=== PATIENT | female | born 1965 | race Caucasian/White ===

== ENCOUNTER → 2024-04-08 08:23 | Outpatient (REF) | payer BC, SELFPAY | LOC: HWWDC 08:23 | PROVIDERS: ATTENDING PHYSICIAN Family Medicine | DX: Z12.31 Encounter for screening mammogram for malignant neoplasm of breast (principal) | CPT/HCPCS: 77063; 77067 ==

== ENCOUNTER 2024-05-06 18:46 | Emergency (ER) | payer BC, SELFPAY ==
[2024-05-06 18:48] VITALS: BP 135/89
[2024-05-06 19:19] VITALS: BMI 26.2
--- NOTE | 2024-05-06 19:22 | ED.GENMED ---
History of Present Illness
General
Chief Complaint: Abdominal Symptoms
Source: patient
Exam Limitations: none
Time Seen by Provider: 05/06/24 19:08
Nursing documentation reviewed up to this point in time: agreed with
History of Present Illness
History of Present Illness:
Patient to ED with complaint of n/v/d since Saturday. States she was visiting family in [place] when she started to feel sick. No other family members with symptoms. Brought self to ED for eval.
Past History
Past History
ED Past Medical History: Asthma and Other ([facility] 2012)
ED Past Surgical History: (x3), Gynecological (Hysterectomy), Orthopedic (lumbar laminectomy, diskectomy, spinal fusion) and Other
Social History
Tobacco: Non-smoker
Alcohol: Occasional
Drug: None
Personal:
Living: with family
Employment: Employed
Family History
Family History: Hypertension
Review of Systems
Review of Systems
Allergies reviewed?: Yes
All Other Systems: ROS reviewed and negative except as documented in HPI and ROS
Constitutional: Reports fatigue
EENT: Reports no symptoms
Respiratory: Reports no symptoms
Cardiac: Reports no symptoms
ABD/GI: Reports abdominal pain, nausea, vomiting and diarrhea
: Reports no symptoms
Musculoskeletal: Reports no symptoms
Skin: Reports no symptoms
Neurological: Reports no symptoms
Psychiatric: Reports no symptoms
Phy Exam
General Physical Exam
General Presentation: well appearing and no apparent distress
General age: appears stated age
General Skin: warm and dry
General Habitus: normal
General Mental: alert
Pulmonary Exam
Pulmonary Exam: no respiratory distress and chest non tender
Gastrointestinal Exam
Gastrointestinal Exam: normal bowel sounds, soft, no organomegaly, non distended and no cva tenderness
Palpation: generalized: Mild tenderness
Musculoskeletal Exam
Musculoskeletal Exam: neuro vasc intact
Skin Exam
Skin Exam: normal color, warm/dry and no rash
Psychiatric Exam
Psychiatric Exam: normal mood/affect
Course
Orders/Labs/Results
Orders:
Orders
05/06/24 19:17
STOOL [C difficile Antigen & Toxins] Urgent
JOHN Source: Feces/Stool
Specimen Description:
Stool Culture Urgent
JOHN Source: Feces/Stool
Specimen Description:
05/06/24 19:18
0.9% Sodium Chloride 1000 ml [Nss] 1,000 ml IV BOLUS
Ondansetron Injectable [Zofran] 4 mg IV NOW STA
05/06/24 19:28
Complete Blood Count/With Diff Urgent
Comprehensive Metabolic Panel Urgent
Lipase Urgent
05/06/24 19:36
COVID-19 Antigen Urgent
Source: Nasal Swab
05/06/24 20:20
Urinalysis Reflex To Culture Urgent
Date Specimen was Collected: 05/06/24
Time Specimen was Collected: 20:19
Urine Microscopic Reflex Cult Urgent
05/06/24 20:22
Ketorolac [Toradol] 15 mg IV NOW STA
05/06/24 20:23
Ketorolac [Toradol] 15 mg .ROUTE .STK-MED ONE
Abnormal Lab Results
05/06/24 05/06/24
19:28 20:20
WBC 4.1 L 10^3/uL
(4.8-10.8)
MCH 31.5 H pg
(27.0-31.0)
Monocytes % 10.5 H %
(1.7-9.3)
ALT 37 H U/L
(0-35)
Leukocyte Esterase Rfl Trace A
(Negative)
Urine Bacteria (Reflex) Few A
(Negative)
05/06/24 19:28
05/06/24 19:28
Vital Signs
Initial and Last Documented VS:
Initial Vital Signs
Temp Pulse Resp BP Pulse Ox
98.3 F 76 18 135/89 98
05/06/24 18:48 05/06/24 18:48 05/06/24 18:48 05/06/24 18:48 05/06/24 18:48
Last Documented Vital Signs
Temp Pulse Resp BP Pulse Ox
98.3 F 67 16 104/61 95
05/06/24 18:48 05/06/24 19:35 05/06/24 19:35 05/06/24 20:00 05/06/24 20:45
*Pulse Oximetry
Patient hypoxic: no
*Critical Care Note
Total Time (30-74mins, 75-104mins- exclusive of procedures): Not Applicable
Update Note
Update Note:
Improved with IVF zofran. No vomiting or diarrhea while in dept. Labs reviewed with her. Most likely viral infection. WIll hold off on imaging at this time. She remains afebrile, nontoxic appearing. Will discharge home on clear liquids, zofran,
close follow up wtih PCP. She was given instructions on s/s to return to ED and she is agreeable to plan
ED Attending Note
-
Portions of this chart may have been created with voice recognition software.� Occasional wrong word or��sound alike� substitutions may have occurred due to the inherent limitations of voice recognition software.
Discharge Plan
Departure
Patient Disposition: Home (Routine Discharge)
Date of Disposition: 05/06/24
Time of Disposition: 20:57
Patient with high blood pressure during this ER visit?: No
Condition: Good
Covid-19: Not Applicable
Discharge Problem:
Diarrhea in adult patient, Nausea & vomiting
Instructions: Diarrhea in teens and adults, Clear Liquid Diet, Nausea and Vomiting, Adult (DC)
Prescriptions:
New
ondansetron 4 mg tablet,disintegrating
4 mg PO Q8H PRN (Reason: nausea and vomiting) Qty: 10 0RF
No Action
loratadine 10 MG tablet
10 mg PO DAILY
sertraline 50 MG tablet
50 mg PO DAILY
ferrous sulfate [FeroSul] 325 MG tablet
325 mg PO HS Qty: 30 0RF
docusate sodium 100 MG capsule
100 mg PO BIDPRN PRN (Reason: No BM > 24 hours) Qty: 30 0RF
Referrals:
Audi Moffett MD [Family Provider] - Tomorrow
Activity Restrictions/Additional Instructions:
Return to the emergency department immediately for any changes in/worsening of your symptoms.
Interventions
Interventions:
*Risk Screen - Suicide Last Done: 05/06/24 18:48
*General Assessment Last Done: 05/06/24 18:48
*Neglect/Abuse Screening Last Done: 05/06/24 18:48
ED- Fall Risk Assessment Last Done: 05/06/24 19:19
*ED COVID-19 Vaccine History Last Done: 05/06/24 19:19
VS-Bzfvjq-Rmiatbyigz Assessment Last Done: 05/06/24 19:20
Discharge Date and Time
Print Language: KHMER
[2024-05-06] MEDS: NSS 1000 IV (19:25)
[2024-05-06] MEDS: ZOFRAN 4 MG IV (19:31)
[2024-05-06 19:34] VITALS: BP 111/73
[2024-05-06 19:34] LABS: % Basophils 0.5 % (0-2); % Eosinophils 2.7 % (0-6); % Immature Granulocytes 0.2 % (0-0.5); % Monocytes 10.5 % (1.7-9.3); % Neutrophils 51.1 % (42.2-75.2); Absolute Eosinophils 0.1 10^3/uL (0-0.7); Absolute Lymphocytes 1.4 10^3/uL (1.2-3.4); Absolute Monocytes 0.4 10^3/uL (0.1-0.6); Absolute Neutrophils 2.1 10^3/uL (1.4-6.5); Hemoglobin 13.6 g/dL (12.0-16.0); Mean Corpuscular Hgb 31.5 pg (27.0-31.0); Mean Corpuscular Volume 92.6 fL (81.0-99.0); Nucleated Red Blood Cells % 0 %; Platelet Count 241 10^3/uL (130-400); Red Blood Cell Count 4.32 10^6/uL (4.20-5.40); Red Cell Dist. Width 12.3 % (11.5-14.5); White Blood Cell Count 4.1 10^3/uL (4.8-10.8)
[2024-05-06 19:49] LABS: ALT (SGPT) 37 U/L (0-35); AST (SGOT) 35 U/L (14-36); Albumin 4.2 g/dl (3.5-5.0); Alkaline Phosphatase 83 U/L (38-126); Blood Urea Nitrogen 11 mg/dl (7-17); Calcium 9.3 mg/dl (8.4-10.2); Carbon Dioxide 27 mmol/L (22-30); Chloride 105 mmol/L (98-107); Estimated Creatinine Clearance 92 ml/min; Glucose 99 mg/dl (70-99); Lipase 66 U/L (23-300); Potassium 3.8 mmol/L (3.5-5.1); Sodium 141 mmol/L (135-145); Total Bilirubin 0.8 mg/dl (0.2-1.3); eGFR > 60.00
[2024-05-06 19:59] LABS: COVID-19 Antigen Negative (Negative)
[2024-05-06 20:00] VITALS: BP 104/61
[2024-05-06] MEDS: TORADOL 15 MG IV (20:24)
[2024-05-06 20:28] LABS: Urine Albumin Negative (Neg - Trace); Urine Bilirubin Negative (Negative); Urine Character Clear (Clear); Urine Color Straw; Urine Glucose Negative (Negative); Urine Ketone Negative (Negative); Urine Leukocyte Trace (Negative); Urine Nitrite Negative (Negative); Urine Occult Blood Negative (Negative); Urine Specific Gravity 1.005 (<1.030); Urine Urobilinogen Negative (Neg - 1+)
[2024-05-06 20:35] LABS: Urine Bacteria Few (Negative); Urine Red Blood Cell 0-2 /HPF (0-2); Urine White Cell 0-2 /HPF (0-5)
== END 2024-05-06 21:06 | disposition home or self-care (01) ==
LOC: EMR 18:46
PROVIDERS: Nurse Practitioner; EMERGENCY PHYSICIAN Emergency Medicine; FAMILY PHYSICIAN Family Medicine
DX: R19.7 Diarrhea, unspecified (principal); R11.2 Nausea with vomiting, unspecified
CPT/HCPCS: 99284; 96374; 96375; 96361; 80053; 81003; 81015; 83690; 85025; 87811

== ENCOUNTER → 2025-08-14 11:10 | Outpatient (REF) | payer BC, SELFPAY | LOC: RAD 11:10 | PROVIDERS: ATTENDING PHYSICIAN Nurse Practitioner Family; FAMILY PHYSICIAN Family Medicine | DX: J06.9 Acute upper respiratory infection, unspecified (principal) | CPT/HCPCS: 71046 ==

== ENCOUNTER 2025-09-06 10:13 | Emergency (ER) | payer BC, SELFPAY ==
[2025-09-06 10:27] VITALS: BP 140/92
--- NOTE | 2025-09-06 11:26 | ED.GENMED ---
History of Present Illness
General
Chief Complaint: Eye Problems
Source: patient
Time Seen by Provider: 09/06/25 10:47
History of Present Illness
History of Present Illness:
60-year-old female with past medical history of previous CVA presenting to the emergency department for evaluation after she had accidentally instilled her dogs Tacrolimus 0.03% ophthalmic solution drops into her eye yesterday around the same time
she presented to the ER today. Patient placed 1 drop in each eye, started to use a saline flush which seem to help a little bit but has continued burning sensation, mild photophobia and a discomfort 'directly to the eyeball itself'. Patient wears
glasses but not contact lenses. She has no other concerns.
Past History
Past History
ED Past Medical History: Asthma, CVA and Other ([facility] 2012)
ED Past Surgical History: (x3), Gynecological (Hysterectomy), Orthopedic (lumbar laminectomy, diskectomy, spinal fusion) and Other
Social History
Tobacco: Non-smoker
Alcohol: Occasional
Drug: None
Personal:
Living: with family
Employment: Employed
Family History
Family History: Hypertension
Review of Systems
Review of Systems
All Other Systems: ROS reviewed and negative except as documented in HPI and ROS
Phy Exam
Physical Exam
Physical Exam:
GENERAL: Alert , in no apparent distress
EYE: conjunctiva clear, pupils 4mm bilateral, EOMI, PERRL, no periorbital erythema/edema. pH: 7.0 both eyes. No FB visualized
VISUAL ACUITY: L/R/B 20/25
IOP: L - 18. R - 21
Head: Normocephalic atraumatic
NECK: Supple,
ENT: mmm.
LUNGS: no acute respiratory distress
NEUROLOGICAL: Alert and oriented
SKIN: Warm and dry, skin intact.
MUSCULOSKELETAL: well perfused.
PSYCH: Normal and appropriate interaction.
Scores
Heart Failure Risk
Heart Failure Risk Score: Not Applicable
Heart Score for Chest Pain Patients
STEMI patient?: Not applicable
Withdrawal Assessment of Alcohol
Withdrawal Assessment Completed?: Not applicable
Course
Orders/Labs/Results
Orders:
Orders
09/06/25 11:39
Tetracaine HCl [Tetracaine 0.5% Ophthalmic Solution] 1 drop .ROUTE .STK-MED ONE
Vital Signs
Initial and Last Documented VS:
Initial Vital Signs
Temp Pulse Resp BP Pulse Ox
98.1 F 99 16 140/92 99
09/06/25 10:27 09/06/25 10:27 09/06/25 10:27 09/06/25 10:27 09/06/25 10:27
Last Documented Vital Signs
Temp Pulse Resp BP Pulse Ox
98.1 F 99 16 140/92 99
09/06/25 10:27 09/06/25 10:27 09/06/25 10:27 09/06/25 10:27 09/06/25 11:27
MDM/Problems Addressed
Differential Diagnosis Includes:
Chemical conjunctivitis
Glaucoma
Medication side-effect
MDM/Problems Addressed:
60-year-old female presenting to the emergency department for evaluation after accidentally instilling 1 drop of tacrolimus eyedrops into her eyes approximately 24 hours ago. Since that time has had intermittent burning, discomfort and photophobia.
She had already used saline wash. She contacted her primary care provider who directed her to the ER for further evaluation. I contacted poison control who recommends patient just continue to use topical drops as needed for Discomfort. I also
notified ophthalmology on-call. Patient advised to use topical saline drops as needed but can otherwise be safely discharged home. Aware of return precautions to the ER.
*Pulse Oximetry
SaO2: 99
Oxygen Mode of Delivery: Room air
Patient hypoxic: no
*Critical Care Note
Total Time (30-74mins, 75-104mins- exclusive of procedures): Not Applicable
Patient Management
Discussion with other providers: [employer] and Other
ED Attending Note
-
Portions of this chart may have been created with voice recognition software.� Occasional wrong word or��sound alike� substitutions may have occurred due to the inherent limitations of voice recognition software.
Discharge Plan
Departure
Patient Disposition: Home (Routine Discharge)
Date of Disposition: 09/06/25
Time of Disposition: 11:26
Patient with high blood pressure during this ER visit?: Yes
Discharge Problem:
Chemical conjunctivitis of both eyes
Instructions: Conjunctivitis (Noninfectious Pinkeye)
Prescriptions:
No Action
loratadine 10 MG tablet
10 mg PO DAILY
sertraline 50 MG tablet
50 mg PO DAILY
ferrous sulfate [FeroSul] 325 MG tablet
325 mg PO HS Qty: 30 0RF
docusate sodium 100 MG capsule
100 mg PO BIDPRN PRN (Reason: No BM > 24 hours) Qty: 30 0RF
ondansetron 4 mg tablet,disintegrating
4 mg PO Q8H PRN (Reason: nausea and vomiting) Qty: 10 0RF
Referrals:
Audi Moffett MD [Family Provider, [facility]]
Activity Restrictions/Additional Instructions:
Reflesh plus preservative free lubricant eyedrops. You can purchase these at [employer]
Interventions
Interventions:
*Risk Screen - Suicide Last Done: 09/06/25 10:27
*General Assessment Last Done: 09/06/25 10:27
*Neglect/Abuse Screening Last Done: 09/06/25 10:27
*Nursing Disposition Last Done: 09/06/25 11:29
Discharge Date and Time
Discharge Date/Time: 09/06/25 11:35
Print Language: GERMAN
== END 2025-09-06 11:35 | disposition home or self-care (01) ==
LOC: EMR 10:13
PROVIDERS: EMERGENCY PHYSICIAN Emergency Medicine; FAMILY PHYSICIAN Family Medicine
DX: H10.213 Acute toxic conjunctivitis, bilateral (principal); J45.909 Unspecified asthma, uncomplicated; Z82.49 Family history of ischemic heart disease and other diseases of the circulatory system; Z86.73 Personal history of transient ischemic attack (TIA), and cerebral infarction without residual deficits; Z90.710 Acquired absence of both cervix and uterus; Z98.1 Arthrodesis status
CPT/HCPCS: 99282